=== PATIENT | male | born 2000 | race American Indian/Alaskan Native ===

== ENCOUNTER 2019-12-21 01:57 | Emergency (ER) | payer OTHER, BC, MEDICAID ==
[~2019-12-21] VITALS: Ht 172.7 cm; Wt 81.2 kg
[2019-12-21 02:04] VITALS: Ht 172.7 cm; Wt 81.2 kg
[2019-12-21 03:13] VITALS: BP 130/75
== END 2019-12-21 03:10 | disposition home or self-care (01) ==
LOC: ED 01:57
DX: S76.912A Strain of unspecified muscles, fascia and tendons at thigh level, left thigh, initial encounter (principal); S00.531A Contusion of lip, initial encounter; M54.6 Pain in thoracic spine; J45.909 Unspecified asthma, uncomplicated; V49.49XA Driver injured in collision with other motor vehicles in traffic accident, initial encounter; Y93.I9 Activity, other involving external motion; Y92.411 Interstate highway as the place of occurrence of the external cause; Y99.8 Other external cause status
CPT/HCPCS: Q0092